=== PATIENT | male | born 1955 ===

== ENCOUNTER → 2018-12-17 | Outpatient (CLI) | payer OTHER ==
[~2018-12-17] MED LIST: COZAAR25 MG; GLIMEPIRIDE1 MG; METFORMIN HYDRO25 GM; PLAVIX75 MG; SIMVASTATIN5 MG
== END | disposition home or self-care (01) ==
LOC: MAMO-SONO 09-09 07:15 → NUCLEAR 12:59
DX: C73 Malignant neoplasm of thyroid gland (principal)
CPT/HCPCS: 78018; 78020; A9528